=== PATIENT | female | born 1955 | race Caucasian/White ===

== ENCOUNTER → 2016-12-05 | Outpatient (CLI) | payer MEDICARE, OTHER ==
[~2016-12-05] MED LIST: AMARYL PO; ATARAX; ATENOLOL; COLCRYS0.6 MG PO; COMBIVENT14.7 GM INH; CYMBALTA PO; CYMBALTA30 MG PO; GLUCOTROL; IMODIUM2 MG; KELP1 TAB PO; LISINOPRIL; NEXIUM; NEXIUM PO; PHENERGAN PO; TYLOX 5/500 CAP1 CAP; ZANAFLEX4 M1 PO; ZOLOFT
--- NOTE | ~2016-12-05 | MY11 ---
[facility] A Service of [facility] & [facility] RADIOLOGY TEXT RESULTS PATIENT: YESY ROY LOCATION: [facility] : 51 UNIT #: [id number] AGE: [address]: Adonis Donaldson MD SEX: F ORDER DR: [id number] [facility] [address] [place], [place] [address] [id number] O MR#: [id number] Acc #: [id number] NAME: YESY ROY : 1955 SEX: F STUDY DATE/TIME: 12/05/2016 14:04 UNIT: [facility] ROOM: STUDY DESCRIPTION: MY Mammogram Screening Dig Luis M Attending Physician: Adonis Donaldson M.D. Referring Physician: Adonis Donaldson M.D. Ordering Physician: Adonis Donaldson M.D. Primary Care Physician: Adonis Donaldson M.D. MEDICAL IMAGING REPORT This report is preliminary unless electronic signature is present EXAM Bilateral digital screening mammogram with CAD 12/05/2016 INDICATIONS 61-year-old female for routine screening. No reported problems and no personal history of breast cancer. Family history positive in the patient's mother in her 50s. No surgeries. TECHNIQUE CC and MLO views of the breast were obtained with an approved FDA CAD device. The patient reports prior imaging at the [facility], but those films have apparently been destroyed. This will serve as her new baseline study. FINDINGS Breast parenchyma is composed of scattered fibroglandular densities. The pattern is symmetric. There is no dominant nodule mass or suspicious cluster of microcalcifications. Partially superimposed over the left pectoralis muscle is a tiny 4 mm nodule. This probably represents a tiny intramammary node. There is a suggestion of a subtle fatty hilum but this could represent a mock line related to the superimposed pectoralis muscle. Suggest a compression MLO view and true lateral view for further assessment. If this cannot be confirmed as an intramammary node mammographically ultrasound would be recommend for further assessment. Please note that if any prior mammographic studies for this patient could be obtained it could likely preclude the need for additional imaging. IMPRESSION 4 mm nodular density projecting on the left pectoralis muscle. This may represent an intramammary node. Additional views and potentially a breast ultrasound recommended. [facility] A Service of [facility] RADIOLOGY TEXT RESULTS PATIENT: YESY ROY LOCATION: [facility] : 51 UNIT #: [id number] AGE: [address]: Adonis Donaldson MD SEX: F ORDER DR: Patient's over the age of 40 are entered into a reminder system with target due date for the next mammogram. A result letter will be sent to the patient. BIRADS: 0 Needs additional imaging evaluate and/or prior mammograms for comparison. Dictated by... Nomi Das M.D. THIS IS AN ELECTRONICALLY VERIFIED REPORT Nomi Das M.D. at 12/06/2016 4:55 PM BRNADT/sukumar TD: 12/06/2016 15:22 JOB #: [id number] MEDICAL IMAGING REPORT COPY
== END | disposition home or self-care (01) ==
LOC: CWCC 13:47
DX: Z12.31 Encounter for screening mammogram for malignant neoplasm of breast (principal); Z80.3 Family history of malignant neoplasm of breast; N63 Unspecified lump in breast
CPT/HCPCS: G0202

== ENCOUNTER → 2016-12-19 | Outpatient (CLI) | payer MEDICARE, OTHER ==
--- NOTE | ~2016-12-19 | MY7 ---
[facility] A Service of [facility] RADIOLOGY TEXT RESULTS PATIENT: YESY ROY LOCATION: [facility] : 51 UNIT #: [id number] AGE: [address]: Adonis Donaldson MD SEX: F ORDER DR: [id number] [facility] [address] [place], [place] [address] [id number] O MR#: [id number] Acc #: [id number] NAME: YESY ROY : 1955 SEX: F STUDY DATE/TIME: 12/19/2016 12:23 UNIT: [facility] ROOM: STUDY DESCRIPTION: MY Mammogram Dx Dig Lt Attending Physician: Adonis Donaldson M.D. Ordering Physician: Adonis Donaldson M.D. Primary Care Physician: Adonis Donaldson M.D. MEDICAL IMAGING REPORT This report is preliminary unless electronic signature is present EXAM Left digital diagnostic mammogram INDICATIONS Focal asymmetry in the left breast on screening mammogram PROCEDURE True lateral and XCCL views of the left breast. Spot compression views in the MLO and XCCL projections. Images obtained on digital mammography unit FDA-approved CAD device utilized. Comparison screening mammogram 12/05/2016. FINDING There is a persistent 3 mm mass in the posterior left breast at approximately the 3 o'clock position. No associated microcalcification. Concurrently performed left breast ultrasound demonstrates a benign intramammary lymph node left breast 3 o'clock position 10 cm from the nipple measuring 3 mm. IMPRESSION Benign intramammary lymph node left breast 3 o'clock position. Recommend patient continue with yearly screening. Patients over the age of 40 are entered into a reminder system with target due date for the next mammogram. A result letter will also be sent to the patient. BIRADS: 2, benign findings. Dictated by... Rene Prince M.D. [facility] A Service of [facility] RADIOLOGY TEXT RESULTS PATIENT: YESY ROY LOCATION: [facility] : 51 UNIT #: [id number] AGE: [address]: Adonis Donaldson MD SEX: F ORDER DR: THIS IS AN ELECTRONICALLY VERIFIED REPORT Rene Prince M.D. at 12/20/2016 7:05 AM JHON/karla TD: 12/19/2016 15:10 JOB #: [id number] MEDICAL IMAGING REPORT Page 1 of 1 COPY
--- NOTE | ~2016-12-19 | US24 ---
[facility] A Service of [facility] & [facility] RADIOLOGY TEXT RESULTS PATIENT: YESY ROY LOCATION: [facility] : 53 UNIT #: [id number] AGE: [address]: Adonis Donaldson MD SEX: F ORDER DR: [id number] [facility] [address] [place], [place] [address] [id number] O MR#: [id number] Acc #: [id number] NAME: YESY ROY : 1955 SEX: F STUDY DATE/TIME: 12/19/2016 12:55 UNIT: [facility] ROOM: STUDY DESCRIPTION: US Breast Unilateral Attending Physician: Adonis Donaldson M.D. Ordering Physician: Adonis Donaldson M.D. Primary Care Physician: Adonis Donaldson M.D. MEDICAL IMAGING REPORT This report is preliminary unless electronic signature is present EXAM Left breast ultrasound INDICATIONS Left breast mass. PROCEDURE Thornton-scale and Doppler imaging left breast at 3 o'clock position in the area of mammographic abnormality. COMPARISON: Concurrently performed diagnostic mammogram. FINDINGS/IMPRESSION Refer to separately dictated diagnostic mammogram for workup, findings and recommendations. BIRADS: 2 - benign findings Dictated by... Rene Prince M.D. THIS IS AN ELECTRONICALLY VERIFIED REPORT Rene Prince M.D. at 12/20/2016 7:05 AM JHON/alexandre TD: 12/19/2016 14:54 JOB #: [id number] MEDICAL IMAGING REPORT Page 1 of 1 COPY
== END | disposition home or self-care (01) ==
LOC: CMAM 11:27
DX: R92.8 Other abnormal and inconclusive findings on diagnostic imaging of breast (principal)
CPT/HCPCS: 76641; G0206

== ENCOUNTER → 2017-04-19 | Outpatient (CLI) | payer MEDICARE, OTHER ==
--- NOTE | ~2017-04-19 | CT57 ---
[facility] A Service of [facility] & [facility] RADIOLOGY TEXT RESULTS PATIENT: YESY GAUTHIER LOCATION: [facility] : 53 UNIT #: [id number] AGE: [address]: Serenity Mullen SEX: F ORDER DR: [id number] [facility] [address]. [place], [place] [address] [id number] O MR#: [id number] Acc #: [id number] NAME: YESY GAUTHIER : 1955 SEX: F STUDY DATE/TIME: 04/19/2017 12:30 UNIT: [facility] ROOM: STUDY DESCRIPTION: CT Chest Wo Cont Attending Physician: Serenity Mullen A.P.R.N. Referring Physician: Serenity Mullen A.P.R.N. Ordering Physician: Serenity Mullen A.P.R.N. Primary Care Physician: Adonis Donaldson M.D. MEDICAL IMAGING REPORT This report is preliminary unless electronic signature is present EXAM CT chest without contrast INDICATIONS Solitary pulmonary nodule. Followup. PROCEDURE Unenhanced CT of the chest. This CT exam was performed with one or more of the following radiation dose reduction techniques: automatic exposure control, adjustment of mA and/or kV according to patient size, and iterative reconstruction. COMPARISON 07/18/2016 FINDINGS Pleural-based nodule posterior right upper lobe measures 7 mm and is unchanged from the prior. Emphysema. No new nodules. No new dense consolidation. A right hilar node measures 1.9 x 1.3 cm previously 1.7 x 1.2 cm. A precarinal node measures 1.3 cm short axis dimension previously 10 mm. Other mediastinal nodes are very similar to the prior. Coronary artery calcification. No acute findings of the included upper abdomen. No aggressive appearing bone lesion. The posterior right upper lobe nodule is not significantly changed from 04/09/2015. IMPRESSION 1. Emphysema. 2. Posterior right upper lobe nodule is unchanged since 04/09/2015, in keeping with benign finding. 3. Slight interval increase in size of a right hilar and precarinal node. This interval change is nonspecific and may be reactive. [facility] A Service of [facility] & [facility] RADIOLOGY TEXT RESULTS PATIENT: YESY GAUTHIER LOCATION: [facility] : 51 UNIT #: [id number] AGE: [address]: Serenity Mullen SEX: F ORDER DR: These can be followed on future studies to exclude persistent increase in size. Dictated by... Rene Prince M.D. THIS IS AN ELECTRONICALLY VERIFIED REPORT Rene Prince M.D. at 04/20/2017 3:29 PM EED/to TD: 04/19/2017 17:48 JOB #: [id number] MEDICAL IMAGING REPORT Page 1 of 1 COPY
== END | disposition home or self-care (01) ==
LOC: CCAT 07:40
DX: R91.1 Solitary pulmonary nodule (principal); J43.9 Emphysema, unspecified
CPT/HCPCS: 71250